=== PATIENT | female | born 1960 | race Caucasian/White ===

== ENCOUNTER 2019-11-12 19:30 | Emergency (ER) | payer MEDICARE ==
[2019-11-12] MEDS ORDERED: Ciprofloxacin/Dexamethasone 0.3-0.1% Otic Susp 7.5 ML Bottle EARRT STA (19:54)
[2019-11-12] MEDS ORDERED: Albuterol/Ipratropium 3.0-0.5 MG/3 ML Neb Soln NEB ONE (19:55)
--- NOTE | 2019-11-12 20:05 | EDM.PDOC ---
ED HPI GENERAL MEDICAL PROBLEM - General Chief Complaint: Fever Stated Complaint: FLU SYMPTOMS Time Seen by Provider: 11/12/19 19:51 Source of Information: Reports: Patient History Limitations: Reports: No Limitations - History of Present Illness INITIAL COMMENTS - FREE TEXT/NARRATIVE: HISTORY AND PHYSICAL: History of present illness: Patient is a 59-year-old female who presents to the emergency room with complaints of cough, bilateral ear pain (right greater than left) and subjective fevers. She states she has been taking [id number] cough and cold medications and has not found much relief. Her right ear has hurt worse today and states it does radiate into her jaw. Patient denies any headache, change in vision, syncope or near syncope. Denies any chest pain, back pain, shortness of breath. Denies any GI or symptoms. Patient has been eating and drinking appropriately. Review of systems: As per history of present illness and below otherwise all systems reviewed and negative. Past medical history: As per history of present illness and as reviewed below otherwise noncontributory. Surgical history: As per history of present illness and as reviewed below otherwise noncontributory. Social history: See social history for further information Family history: As per history of present illness and as reviewed below otherwise noncontributory. Physical exam: General: Well-developed and well-nourished 59-year-old female. Alert and oriented. Nontoxic-appearing and in no acute distress. HEENT: Atraumatic, normocephalic, pupils equal and reactive bilaterally, negative for conjunctival pallor or scleral icterus, mucous membranes moist, patient has erythema in the right ear canal otherwise TMs normal bilaterally, temporal tenderness with palpation, throat clear, neck supple, nontender, trachea midline. No drooling or trismus noted. No meningeal signs. No hot potato voice noted. Lungs: Clear to auscultation, breath sounds equal bilaterally, chest nontender. Heart: S1S2, regular rate and rhythm without overt murmur Abdomen: Soft, nondistended, nontender. Skin: Intact, warm, dry. No lesions or rashes noted. Extremities: Atraumatic, moves all extremities per self without difficulty or deficits, negative for cords or calf pain. Neurovascular unremarkable. Neuro: Awake, alert, oriented. Cranial nerves II through XII unremarkable. Cerebellum unremarkable. Motor and sensory unremarkable throughout. Exam nonfocal. Notes: Patient is requesting tramadol while waiting for her diagnostics to return. Chest x-ray shows mild bronchitis otherwise unremarkable. Negative influenza screening. Vital signs have improved. We discussed signs and symptoms that would prompt her to return to the emergency room. Encouraged her to follow-up with her primary care provider. Medication and supportive care measures were reviewed and discussed. Voices understanding and is agreeable to plan of care. Denies any further questions or concerns at this time. Diagnostics: CXR, influenza Therapeutics: Ciprodex, DuoNeb Prescription: Zpak Tramadol Impression: Otitis Externa, Right Bronchitis Plan: 1. Take the medications as prescribed. Ciprodex in the right ear twice daily over the next 7 days. 2. You can continue taking Tylenol and ibuprofen as needed. 3. Please follow-up with your primary care provider as we discussed. Return to the ED as needed and as discussed. Definitive disposition and diagnosis as appropriate pending reevaluation and review of above. bilateral ear Pain Score (Numeric/FACES): 8 - Related Data Allergies Allergy/AdvReac Type Severity Reaction Status Date / Time No Known Allergies Allergy Verified 11/12/19 19:43 Home Meds: Home Meds Albuterol [Ventolin HFA] 1 puff INH ASDIRECTED 11/12/19 [History] Azithromycin [Zithromax] 1 dose PO DAILY 5 Days #6 tab 11/12/19 [Rx] Furosemide [Lasix] 10 mg PO ASDIRECTED 11/12/19 [History] Potassium Chloride [Klor-Con 8] 8 meq PO ASDIRECTED 11/12/19 [History] Rivaroxaban [Xarelto] 0 mg PO DAILY 11/12/19 [History] Zolpidem Tartrate [Ambien] 5 mg PO 11/12/19 [History] methylPREDNISolone [Medrol] 1 dose PO DAILY 6 Days #1 dospk 11/12/19 [Rx] traMADol [Ultram] 50 mg PO Q4H PRN #15 tab 11/12/19 [Rx] traZODone HCl [Trazodone HCl] 50 mg PO 11/12/19 [History] Past Medical History Other Cardiovascular History: pt report begining heart disease Respiratory History: Reports: Asthma Genitourinary History: Reports: None Musculoskeletal History: Reports: Arthritis Neurological History: Reports: Migraines Other Neuro History: spinal stenosis Psychiatric History: Reports: None Endocrine/Metabolic History: Reports: None Hematologic History: Reports: Iron Deficiency, Other (See Below) Other Hematologic History: factor five Oncologic (Cancer) History: Reports: None Dermatologic History: Reports: None - Infectious Disease History Infectious Disease History: Reports: Chicken Pox, MRSA, Mumps - Past Surgical History HEENT Surgical History: Reports: Tonsillectomy GI Surgical History: Reports: Bariatric Procedure Other GI Surgeries/Procedures: hernia repair Female Surgical History: Reports: Section Musculoskeletal Surgical History: Reports: Other (See Below) Other Musculoskeletal Surgeries/Procedures:: right shoulder surgery. right knee surgery Social & Family History - Family History Family Medical History: Noncontributory - Tobacco Use Smoking Status *Q: Former Smoker Used Tobacco, but Quit: Yes Month/Year Tobacco Last Used: 2017 - Recreational Drug Use Recreational Drug Use: No ED ROS GENERAL - Review of Systems Review Of Systems: Comprehensive ROS is negative, except as noted in HPI. ED EXAM, GENERAL - Physical Exam Exam: See Below (See dictation) Course - Vital Signs Last Recorded V/S: Last Vital Signs Temp 97.6 F 11/12/19 19:49 Pulse 84 11/12/19 19:49 Resp 22 H 11/12/19 19:49 BP 149/73 H 11/12/19 19:49 Pulse Ox 92 L 11/12/19 19:49 - Orders/Labs/Meds Orders: Active Orders 24 hr Category Date Time Status RT Aerosol Therapy [RC] ASDIRECTED Care 11/12/19 19:56 Active Meds: Medications Discontinued Medications Generic Name Dose Route Start Last Admin Trade Name Wade PRN Reason Stop Dose Admin Albuterol/Ipratropium 3 ml 11/12/19 19:55 11/12/19 20:14 Duoneb 3.0-0.5 Mg/3 Ml NEB 11/12/19 19:56 3 ml ONETIME ONE Administration Ciprofloxacin/Dexamethasone 4 ml 11/12/19 19:54 11/12/19 20:28 Ciprodex Otic Susp EARRT 11/12/19 19:55 4 ml NOW STA Administration Tramadol HCl 50 mg 11/12/19 20:21 11/12/19 20:24 Ultram PO 11/12/19 20:22 Not Given ONETIME ONE Tramadol HCl 50 mg 11/12/19 20:23 11/12/19 20:28 Ultram PO 11/12/19 20:24 50 mg ONETIME ONE Administration Departure - Departure Time of Disposition: 21:10 Disposition: Home, Self-Care 01 Clinical Impression: Bronchitis Otitis externa Qualifiers: Otitis externa type: unspecified type Chronicity: acute Laterality: right Qualified Code(s): H60.501 - Unspecified acute noninfective otitis externa, right ear - Discharge Information Prescriptions: Azithromycin [Zithromax] 1 dose PO DAILY 5 Days #6 tab methylPREDNISolone [Medrol] 1 dose PO DAILY 6 Days #1 dospk traMADol [Ultram] 50 mg PO Q4H PRN #15 tab PRN Reason: Pain Instructions: Otitis Externa, [id number], Upper Respiratory Infection, Adult , [id number] Referrals: PCP,None [Primary Care Provider] - Forms: ED Department Discharge Additional Instructions: The following information is given to patients seen in the emergency department who are being discharged to home. This information is to outline your options for follow-up care. We provide all patients seen in our emergency department with a follow-up referral. The need for follow-up, as well as the timing and circumstances, are variable depending upon the specifics of your emergency department visit. If you don't have a primary care physician on staff, we will provide you with a referral. We always advise you to contact your personal physician following an emergency department visit to inform them of the circumstance of the visit and for follow-up with them and/or the need for any referrals to a consulting specialist. The emergency department will also refer you to a specialist when appropriate. This referral assures that you have the opportunity for follow-up care with a specialist. All of these measure are taken in an effort to provide you with optimal care, which includes your follow-up. Under all circumstances we always encourage you to contact your private physician who remains a resource for coordinating your care. When calling for follow-up care, please make the office aware that this follow-up is from your recent emergency room visit. If for any reason you are refused follow-up, please contact the [facility] Emergency Department at and asked to speak to the emergency department charge nurse. [facility] Primary Care [address] [place] [address] [place] [id number] [facility] [address] [place] [address] 1. Take the medications as prescribed. Ciprodex in the right ear twice daily over the next 7 days. 2. You can continue taking Tylenol and ibuprofen as needed. 3. Please follow-up with your primary care provider as we discussed. Return to the ED as needed and as discussed. Sepsis Event Note - Evaluation Sepsis Screening Result: No Definite Risk - Focused Exam Vital Signs: Vital Signs Temp Pulse Resp BP Pulse Ox 11/12/19 19:49 97.6 F 84 22 H 149/73 H 92 L Date Exam was Performed: 11/12/19 Time Exam was Performed: 21:13 - My Orders Last 24 Hours: My Active Orders 11/12/19 19:56 RT Aerosol Therapy [RC] ASDIRECTED - Assessment/Plan Last 24 Hours: My Active Orders 11/12/19 19:56 RT Aerosol Therapy [RC] ASDIRECTED
[2019-11-12] MEDS ORDERED: traMADol 50 MG Tab PO ONE ×2 (20:21→20:23)
--- NOTE | 2019-11-12 21:07 | CR ---
Chest: 2 views of the chest were obtained. Comparison: No prior chest x-ray is available. Heart size and mediastinum are normal. Central lung markings are questionably increased since difficult to exclude mild bronchitis. Lungs otherwise are clear. Mild scoliosis is noted within the spine. No acute osseous finding is seen. Impression: 1. Possible mild bronchitis. 2. Nothing acute is otherwise seen on 2 view chest x-ray. Diagnostic code #3 Study was dictated in [place] Standard Time
== END 2019-11-12 21:25 | disposition home or self-care (01) ==
LOC: MW.ED 19:30
DX: J40 Bronchitis, not specified as acute or chronic (principal); H60.501 Unspecified acute noninfective otitis externa, right ear; Z87.891 Personal history of nicotine dependence; Z79.899 Other long term (current) drug therapy
CPT/HCPCS: 71046; 87804; 94640; 99284; A9270; 99283; J7620-GY

== ENCOUNTER 2020-08-04 13:50 | Observation (INO) | payer MEDICARE ==
--- NOTE | 2020-08-04 13:57 | EDM.PDOC ---
ED HPI GENERAL MEDICAL PROBLEM - General Chief Complaint: Chest Pain Stated Complaint: CHEST PAIN Time Seen by Provider: 08/04/20 13:56 Source of Information: Reports: Patient History Limitations: Reports: No Limitations - History of Present Illness INITIAL COMMENTS - FREE TEXT/NARRATIVE: 60-year-old female past medical history COPD no home O2, factor V Leidin on eliquis use presents for chest pain. Patient states that she was using the restroom, when she got up from urinating she felt a sharp/stabbing pain in her center chest radiating up her neck. She went to sit down but pain did not get better. She took 6 x 81 mg baby aspirin and rested. The pain lasted for about 10 minutes and was rated an 8 out of 10 in intensity. She did have associated shortness of breath. She currently denies any residual chest pain or shortness of breath. She denies nausea vomiting. Denies recent illnesses or fevers. - Related Data Allergies Allergy/AdvReac Type Severity Reaction Status Date / Time No Known Allergies Allergy Verified 08/04/20 13:56 Home Meds: Home Meds Albuterol [Ventolin HFA] 1 puff INH ASDIRECTED 11/12/19 [History] Furosemide [Lasix] 40 mg PO DAILY 11/12/19 [History] Potassium Chloride [Klor-Con 8] 40 meq PO ASDIRECTED 11/12/19 [History] Rivaroxaban [Xarelto] 20 mg PO DAILY 11/12/19 [History] Zolpidem Tartrate [Ambien] 5 mg PO DAILY 11/12/19 [History] traZODone HCl [Trazodone HCl] 50 mg PO DAILY 11/12/19 [History] Cyclobenzaprine [Flexeril] 10 mg PO TID 08/04/20 [History] Past Medical History Other Cardiovascular History: pt report begining heart disease Respiratory History: Reports: Asthma Genitourinary History: Reports: None Musculoskeletal History: Reports: Arthritis Neurological History: Reports: Migraines Other Neuro History: spinal stenosis Psychiatric History: Reports: None Endocrine/Metabolic History: Reports: None Hematologic History: Reports: Iron Deficiency, Other (See Below) Other Hematologic History: factor five Oncologic (Cancer) History: Reports: None Dermatologic History: Reports: None - Infectious Disease History Infectious Disease History: Reports: Chicken Pox, MRSA, Mumps - Past Surgical History HEENT Surgical History: Reports: Tonsillectomy GI Surgical History: Reports: Bariatric Procedure Other GI Surgeries/Procedures: hernia repair Female Surgical History: Reports: Section Musculoskeletal Surgical History: Reports: Other (See Below) Other Musculoskeletal Surgeries/Procedures:: right shoulder surgery. right knee surgery Social & Family History - Family History Family Medical History: No Pertinent Family History ED ROS GENERAL - Review of Systems Review Of Systems: Comprehensive ROS is negative, except as noted in HPI. ED EXAM, GENERAL - Physical Exam Exam: See Below Exam Limited By: No Limitations General Appearance: Alert, WD/WN, No Apparent Distress Throat/Mouth: Normal Voice, No Airway Compromise Head: Atraumatic, Normocephalic Neck: Normal Inspection Respiratory/Chest: No Respiratory Distress, Lungs Clear, Normal Breath Sounds, No Accessory Muscle Use Cardiovascular: Normal Peripheral Pulses, Regular Rate, Rhythm, Other (mild b/l pitting edema) Extremities: Normal Inspection Neurological: Alert Psychiatric: Normal Affect, Normal Mood Skin Exam: Warm, Dry, Intact, Normal Color #1 Interpretation EKG Date: 08/04/20 Time: 14:00 Rhythm: NSR Rate (Beats/Min): 64 [place]: Normal P-Wave: Present QRS: Normal ST-T: Normal QT: Normal DE/PQ Interval: 203 EKG Interpretation Comments: inverted T-wave V1, V2, V3, V4, III; concerning for acute ischemia Course - Vital Signs Last Recorded V/S: Last Vital Signs Temp 96.8 F L 08/04/20 13:54 Pulse 77 08/04/20 13:54 Resp 18 08/04/20 13:54 BP 142/63 H 08/04/20 13:54 Pulse Ox 95 08/04/20 13:54 - Orders/Labs/Meds Orders: Active Orders 24 hr Category Date Time Status Cardiac Monitoring [RC] . DIRECTED Care 08/04/20 13:58 Active EKG Documentation Completion [RC] STAT Care 08/04/20 13:58 Active Pulse Oximetry [RC] ASDIRECTED Care 08/04/20 13:58 Active CORONAVIRUS COVID-19 PCR PHL Stat Lab 08/04/20 17:53 Ordered Sodium Chloride 0.9% [Saline Flush] Med 08/04/20 13:58 Active 10 ml FLUSH ASDIRECTED PRN Sodium Chloride 0.9% [Saline Flush] Med 08/04/20 13:58 Active 2.5 ml FLUSH ASDIRECTED PRN Saline Lock Insert [OM.PC] Stat Oth 08/04/20 13:58 Ordered Medication Orders Sodium Chloride (Saline Flush) 10 ml FLUSH ASDIRECTED PRN PRN Reason: Keep Vein Open Last Admin: 08/04/20 16:47 Dose: 10 ml Documented by: RAIZA Sodium Chloride (Saline Flush) 2.5 ml FLUSH ASDIRECTED PRN PRN Reason: Keep Vein Open Last Admin: 08/04/20 16:47 Dose: 2.5 ml Documented by: RAIZA Labs: Laboratory Tests 08/04/20 08/04/20 08/04/20 Range/Units 13:58 13:58 13:58 WBC 6.39 (4.0-11.0) K/uL RBC 5.01 (4.30-5.90) M/uL Hgb 14.9 (12.0-16.0) g/dL Hct 44.1 (36.0-46.0) % MCV 88.0 (80.0-98.0) fL MCH 29.7 (27.0-32.0) pg MCHC 33.8 (31.0-37.0) g/dL RDW Std Deviation 44.5 (28.0-62.0) fl RDW Coeff of Trevor 14 (11.0-15.0) % Plt Count 169 (150-400) K/uL MPV 12.20 H (7.40-12.00) fL Neut % (Auto) 52.3 (48.0-80.0) % Lymph % (Auto) 36.6 (16.0-40.0) % [place] % (Auto) 8.9 (0.0-15.0) % Eos % (Auto) 1.4 (0.0-7.0) % Baso % (Auto) 0.8 (0.0-1.5) % Neut # (Auto) 3.3 (1.4-5.7) K/uL Lymph # (Auto) 2.3 (0.6-2.4) K/uL [place] # (Auto) 0.6 (0.0-0.8) K/uL Eos # (Auto) 0.1 (0.0-0.7) K/uL Baso # (Auto) 0.1 (0.0-0.1) K/uL Nucleated RBC % 0.0 /100WBC Nucleated RBCs # 0 K/uL INR APTT (18.6-31.3) SEC Lactate 0.6 (0.20-2.00) mmol/L Sodium 139 (136-145) mmol/L Potassium 4.1 (3.5-5.1) mmol/L Chloride 105 (98-107) mmol/L Carbon Dioxide 23.9 (21.0-32.0) mmol/L BUN 16 (7.0-18.0) mg/dL Creatinine 1.3 H (0.6-1.0) mg/dL Est Cr Clr Drug Dosing 42.44 mL/min Estimated GFR (MDRD) 42.1 ml/min Glucose 97 (74-106) mg/dL Calcium 8.9 (8.5-10.1) mg/dL Magnesium 1.9 (1.8-2.4) mg/dL Total Bilirubin 0.5 (0.2-1.0) mg/dL AST 27 (15-37) IU/L ALT 38 (14-63) IU/L Alkaline Phosphatase 100 (46-116) U/L Troponin I < 0.050 (0.000-0.056) ng/mL Total Protein 6.8 (6.4-8.2) g/dL Albumin 3.6 (3.4-5.0) g/dL Globulin 3.2 (2.6-4.0) g/dL Albumin/Globulin Ratio 1.1 (0.9-1.6) Lipase 30 L (73-393) U/L 08/04/20 08/04/20 Range/Units 13:58 17:01 WBC (4.0-11.0) K/uL RBC (4.30-5.90) M/uL Hgb (12.0-16.0) g/dL Hct (36.0-46.0) % MCV (80.0-98.0) fL MCH (27.0-32.0) pg MCHC (31.0-37.0) g/dL RDW Std Deviation (28.0-62.0) fl RDW Coeff of Trevor (11.0-15.0) % Plt Count (150-400) K/uL MPV (7.40-12.00) fL Neut % (Auto) (48.0-80.0) % Lymph % (Auto) (16.0-40.0) % [place] % (Auto) (0.0-15.0) % Eos % (Auto) (0.0-7.0) % Baso % (Auto) (0.0-1.5) % Neut # (Auto) (1.4-5.7) K/uL Lymph # (Auto) (0.6-2.4) K/uL [place] # (Auto) (0.0-0.8) K/uL Eos # (Auto) (0.0-0.7) K/uL Baso # (Auto) (0.0-0.1) K/uL Nucleated RBC % /100WBC Nucleated RBCs # K/uL INR 1.03 APTT 29.5 (18.6-31.3) SEC Lactate (0.20-2.00) mmol/L Sodium (136-145) mmol/L Potassium (3.5-5.1) mmol/L Chloride (98-107) mmol/L Carbon Dioxide (21.0-32.0) mmol/L BUN (7.0-18.0) mg/dL Creatinine (0.6-1.0) mg/dL Est Cr Clr Drug Dosing mL/min Estimated GFR (MDRD) ml/min Glucose (74-106) mg/dL Calcium (8.5-10.1) mg/dL Magnesium (1.8-2.4) mg/dL Total Bilirubin (0.2-1.0) mg/dL AST (15-37) IU/L ALT (14-63) IU/L Alkaline Phosphatase (46-116) U/L Troponin I < 0.050 (0.000-0.056) ng/mL Total Protein (6.4-8.2) g/dL Albumin (3.4-5.0) g/dL Globulin (2.6-4.0) g/dL Albumin/Globulin Ratio (0.9-1.6) Lipase (73-393) U/L Meds: Medications Generic Name Dose Route Start Last Admin Trade Name Freq PRN Reason Stop Dose Admin Sodium Chloride 10 ml 08/04/20 13:58 08/04/20 16:47 Saline Flush FLUSH 10 ml ASDIRECTED PRN Administration Keep Vein Open Sodium Chloride 2.5 ml 08/04/20 13:58 08/04/20 16:47 Saline Flush FLUSH 2.5 ml ASDIRECTED PRN Administration Keep Vein Open - Re-Assessments/Exams Free Text/Narrative Re-Assessment/Exam: 08/04/20 17:55 2 times Trope negative, spoke with hospitalist Dr. Griffin who agrees to admit patient for chest pain ops work-up. Departure - Departure Time of Disposition: 17:55 Disposition: Admitted As Inpatient 68 Condition: Good Clinical Impression: Chest pain Qualifiers: Chest pain type: unspecified Qualified Code(s): R07.9 - Chest pain, unspecified - Discharge Information Forms: ED Department Discharge Sepsis Event Note (ED) - Evaluation Sepsis Screening Result: No Definite Risk - Focused Exam Vital Signs: Vital Signs Temp Pulse Resp BP Pulse Ox 08/04/20 13:54 96.8 F L 77 18 142/63 H 95 - My Orders Last 24 Hours: My Active Orders 08/04/20 13:58 Cardiac Monitoring [RC] . DIRECTED EKG Documentation Completion [RC] STAT Pulse Oximetry [RC] ASDIRECTED Sodium Chloride 0.9% [Saline Flush] 10 ml FLUSH ASDIRECTED PRN Sodium Chloride 0.9% [Saline Flush] 2.5 ml FLUSH ASDIRECTED PRN Saline Lock Insert [OM.PC] Stat 08/04/20 17:53 CORONAVIRUS COVID-19 PCR PHL Stat - Assessment/Plan Last 24 Hours: My Active Orders 08/04/20 13:58 Cardiac Monitoring [RC] . DIRECTED EKG Documentation Completion [RC] STAT Pulse Oximetry [RC] ASDIRECTED Sodium Chloride 0.9% [Saline Flush] 10 ml FLUSH ASDIRECTED PRN Sodium Chloride 0.9% [Saline Flush] 2.5 ml FLUSH ASDIRECTED PRN Saline Lock Insert [OM.PC] Stat 08/04/20 17:53 CORONAVIRUS COVID-19 PCR PHL Stat
[2020-08-04] MEDS ORDERED: Sodium Chloride 0.9% 2.5 ML Syringe FLUSH PRN (13:58)
[2020-08-04] MEDS ORDERED: Sodium Chloride 0.9% 10 ML Syringe FLUSH PRN (13:58)
[2020-08-04 14:29] LABS: BLOOD UREA NITROGEN,BUN 16 mg/dL (7.0-18.0); CARBON DIOXIDE,CO2 23.9 mmol/L (21.0-32.0); CHLORIDE,CL 105 mmol/L (98-107); GLUCOSE RANDOM 97 mg/dL (74-106); LIPASE 30 U/L (73-393); POTASSIUM,K 4.1 mmol/L (3.5-5.1); SODIUM,NA 139 mmol/L (136-145)
--- NOTE | 2020-08-04 14:34 | CR ---
INDICATION: Chest pain COMPARISON: November 12, 2019 TECHNIQUE: Single-view portable chest radiograph FINDINGS: TUBES AND LINES: None. HEART AND MEDIASTINUM: The heart size is normal. The mediastinal contour appears normal for patient age. LUNGS AND PLEURAL SPACES: The lungs appear normal.The pleural spaces are unremarkable. OSSEOUS STRUCTURES: Age-appropriate appearance. No acute focal finding. IMPRESSION: No evidence of active pulmonary disease. Dictated by Mundo Pederson MD @ Aug 04 2020 2:31PM Signed by Dr. Mundo Pedesron @ Aug 04 2020 2:33PM
[2020-08-04] MEDS ORDERED: Albuterol/Ipratropium 3.0-0.5 MG/3 ML Neb Soln NEB PRN (18:00)
[2020-08-04] MEDS ORDERED: Acetaminophen 325 MG Tab PO PRN (18:32)
[2020-08-04] MEDS ORDERED: Lactated Ringers 500 ML IV ONE (18:43)
--- NOTE | 2020-08-04 18:48 | PCM.HP.2 ---
<Elliot Johnson M - Last Filed: 08/04/20 18:56> H&P History of Present Illness - General Date of Service: 08/04/20 Admit Problem/Dx: Admission Diagnosis/Problem Admission Diagnosis/Problem Chest pain Source of Information: Patient History Limitations: Reports: No Limitations - History of Present Illness Initial Comments - Free Text/Narative: 60-year-old female presents complaining of chest pain. She has a PMH of COPD, Factor V leiden mutation, asthma, migraines and back pain. Patient reports having chest pain, located in her central chest which was described as "sharp" and "pressure" in nature. The pain radiated to her neck. The pain lasted a pproximately 10 min before resolving. The pain did not worsen with activity or rest. She has never had chest pain like this before. Patient did have associated shortness of breath and cold sweats. Patient took 6 baby aspirins before coming to the ER. Patient did not have any more chest pain upon arrival to the ER. She denies having any fevers, chills, sore throat, cough, nausea, vomiting, abdomina l pain, blood in stool, blood in urine, numbness or tingling in extremities. In the ER, CBC unremarkable, creatinine 1.3, troponin was negative x 2. CXR was unremarkable. EKG showed inverted T-waves in leads V1, V2, V3, V4 and lead III. COVID-19 test pending. Patient admitted for further evaluation and treatment. - Related Data Allergies/Adverse Reactions: Allergies Allergy/AdvReac Type Severity Reaction Status Date / Time adhesive tape Allergy Blisters Verified 08/04/20 20:02 Home Medications: Home Meds Albuterol [Ventolin HFA] 1 puff INH ASDIRECTED PRN 11/12/19 [History] Zolpidem Tartrate [Ambien] 5 mg PO BEDTIME 11/12/19 [History] traZODone HCl [Trazodone HCl] 50 mg PO BEDTIME PRN 11/12/19 [History] Cyclobenzaprine [Flexeril] 10 mg PO TID PRN 08/04/20 [History] Furosemide 20 mg PO DAILY PRN 08/04/20 [History] Pedi Mv No.79/Ferrous Fumarate [Flintstones with Iron Tab Chew] 18 mg PO DAILY 08/04/20 [History] Potassium Chloride 20 meq PO DAILY PRN 08/04/20 [History] Rivaroxaban [Xarelto] 20 mg PO DAILY 08/04/20 [History] Past Medical History Other Cardiovascular History: pt report begining heart disease Respiratory History: Reports: Asthma Genitourinary History: Reports: None Other OB/BYN History: c section Musculoskeletal History: Reports: Arthritis Neurological History: Reports: Migraines Other Neuro History: spinal stenosis Psychiatric History: Reports: None Endocrine/Metabolic History: Reports: None Hematologic History: Reports: Iron Deficiency, Other (See Below) Other Hematologic History: factor five Oncologic (Cancer) History: Reports: None Dermatologic History: Reports: None - Infectious Disease History Infectious Disease History: Reports: Chicken Pox, MRSA, Mumps - Past Surgical History HEENT Surgical History: Reports: Tonsillectomy GI Surgical History: Reports: Bariatric Procedure Other GI Surgeries/Procedures: hernia repair Female Surgical History: Reports: Section Musculoskeletal Surgical History: Reports: Other (See Below) Other Musculoskeletal Surgeries/Procedures:: right shoulder surgery. right knee surgery Social & Family History - Family History Family Medical History: No Pertinent Family History - Caffeine Use Caffeine Use: Reports: Tea - Recreational Drug Use Recreational Drug Use: No H&P Review of Systems - Review of Systems: Review Of Systems: Comprehensive ROS is negative, except as noted in HPI. Exam - Exam Exam: See Below - Vital Signs Vital Signs: Last Vital Signs Temp 36.0 C L 08/04/20 13:54 Pulse 77 08/04/20 13:54 Resp 18 08/04/20 13:54 BP 142/63 H 08/04/20 13:54 Pulse Ox 95 08/04/20 13:54 Weight: 108.862 kg - Exam General: Alert, Oriented, Cooperative, Other (NAD) HEENT: Conjunctiva Clear, EOMI, Hearing Intact, Pupils Equal, Pupils Reactive Neck: Supple, Trachea Midline Lungs: Clear to Auscultation, Normal Respiratory Effort Cardiovascular: Regular Rate, Regular Rhythm GI/Abdominal Exam: Normal Bowel Sounds, Soft, Non-Tender, No Distention Extremities: Normal Inspection, No Pedal Edema Peripheral Pulses: 2+: Radial (L), Radial (R) Skin: Warm, Dry, Intact Neurological: Cranial Nerves Intact, Strength Equal Bilateral, Normal Speech, Normal Tone Neuro Extensive - Mental Status: Alert, Oriented x3, Normal Mood/Affect Psychiatric: Alert, Normal Affect, Normal Mood - Patient Data Lab Results Last 24 hrs: Laboratory Results - last 24 hr 08/04/20 08/04/20 08/04/20 Range/Units 13:58 13:58 13:58 WBC 6.39 (4.0-11.0) K/uL RBC 5.01 (4.30-5.90) M/uL Hgb 14.9 (12.0-16.0) g/dL Hct 44.1 (36.0-46.0) % MCV 88.0 (80.0-98.0) fL MCH 29.7 (27.0-32.0) pg MCHC 33.8 (31.0-37.0) g/dL RDW Std Deviation 44.5 (28.0-62.0) fl RDW Coeff of Trevor 14 (11.0-15.0) % Plt Count 169 (150-400) K/uL MPV 12.20 H (7.40-12.00) fL Neut % (Auto) 52.3 (48.0-80.0) % Lymph % (Auto) 36.6 (16.0-40.0) % Harrison % (Auto) 8.9 (0.0-15.0) % Eos % (Auto) 1.4 (0.0-7.0) % Baso % (Auto) 0.8 (0.0-1.5) % Neut # (Auto) 3.3 (1.4-5.7) K/uL Lymph # (Auto) 2.3 (0.6-2.4) K/uL Harrison # (Auto) 0.6 (0.0-0.8) K/uL Eos # (Auto) 0.1 (0.0-0.7) K/uL Baso # (Auto) 0.1 (0.0-0.1) K/uL Nucleated RBC % 0.0 /100WBC Nucleated RBCs # 0 K/uL INR APTT (18.6-31.3) SEC Lactate 0.6 (0.20-2.00) mmol/L Sodium 139 (136-145) mmol/L Potassium 4.1 (3.5-5.1) mmol/L Chloride 105 (98-107) mmol/L Carbon Dioxide 23.9 (21.0-32.0) mmol/L BUN 16 (7.0-18.0) mg/dL Creatinine 1.3 H (0.6-1.0) mg/dL Est Cr Clr Drug Dosing 42.44 mL/min Estimated GFR (MDRD) 42.1 ml/min Glucose 97 (74-106) mg/dL Calcium 8.9 (8.5-10.1) mg/dL Magnesium 1.9 (1.8-2.4) mg/dL Total Bilirubin 0.5 (0.2-1.0) mg/dL AST 27 (15-37) IU/L ALT 38 (14-63) IU/L Alkaline Phosphatase 100 (46-116) U/L Troponin I < 0.050 (0.000-0.056) ng/mL Total Protein 6.8 (6.4-8.2) g/dL Albumin 3.6 (3.4-5.0) g/dL Globulin 3.2 (2.6-4.0) g/dL Albumin/Globulin Ratio 1.1 (0.9-1.6) Lipase 30 L (73-393) U/L 08/04/20 08/04/20 Range/Units 13:58 17:01 WBC (4.0-11.0) K/uL RBC (4.30-5.90) M/uL Hgb (12.0-16.0) g/dL Hct (36.0-46.0) % MCV (80.0-98.0) fL MCH (27.0-32.0) pg MCHC (31.0-37.0) g/dL RDW Std Deviation (28.0-62.0) fl RDW Coeff of Trevor (11.0-15.0) % Plt Count (150-400) K/uL MPV (7.40-12.00) fL Neut % (Auto) (48.0-80.0) % Lymph % (Auto) (16.0-40.0) % Harrison % (Auto) (0.0-15.0) % Eos % (Auto) (0.0-7.0) % Baso % (Auto) (0.0-1.5) % Neut # (Auto) (1.4-5.7) K/uL Lymph # (Auto) (0.6-2.4) K/uL Harrison # (Auto) (0.0-0.8) K/uL Eos # (Auto) (0.0-0.7) K/uL Baso # (Auto) (0.0-0.1) K/uL Nucleated RBC % /100WBC Nucleated RBCs # K/uL INR 1.03 APTT 29.5 (18.6-31.3) SEC Lactate (0.20-2.00) mmol/L Sodium (136-145) mmol/L Potassium (3.5-5.1) mmol/L Chloride (98-107) mmol/L Carbon Dioxide (21.0-32.0) mmol/L BUN (7.0-18.0) mg/dL Creatinine (0.6-1.0) mg/dL Est Cr Clr Drug Dosing mL/min Estimated GFR (MDRD) ml/min Glucose (74-106) mg/dL Calcium (8.5-10.1) mg/dL Magnesium (1.8-2.4) mg/dL Total Bilirubin (0.2-1.0) mg/dL AST (15-37) IU/L ALT (14-63) IU/L Alkaline Phosphatase (46-116) U/L Troponin I < 0.050 (0.000-0.056) ng/mL Total Protein (6.4-8.2) g/dL Albumin (3.4-5.0) g/dL Globulin (2.6-4.0) g/dL Albumin/Globulin Ratio (0.9-1.6) Lipase (73-393) U/L Result Diagrams: 08/04/20 13:58 08/04/20 13:58 Sepsis Event Note - Evaluation Sepsis Screening Result: No Definite Risk - Focused Exam Vital Signs: Vital Signs Temp Pulse Resp BP Pulse Ox 08/04/20 13:54 36.0 C L 77 18 142/63 H 95 - Problem List (1) Chest pain SNOMED Code(s): 65910250 ICD Code: R07.9 - CHEST PAIN, UNSPECIFIED Status: Acute Qualifiers: Chest pain type: unspecified Qualified Code(s): R07.9 - Chest pain, unspecified (2) Factor V Leiden SNOMED Code(s): 544210421 ICD Code: D68.51 - ACTIVATED PROTEIN C RESISTANCE Status: Acute (3) COPD (chronic obstructive pulmonary disease) SNOMED Code(s): 84879696 ICD Code: J44.9 - CHRONIC OBSTRUCTIVE PULMONARY DISEASE, UNSPECIFIED Status: Acute (4) Anxiety SNOMED Code(s): 24786898 ICD Code: F41.9 - ANXIETY DISORDER, UNSPECIFIED Status: Acute (5) TITO (acute kidney injury) SNOMED Code(s): 16846265, 58965199 ICD Code: N17.9 - ACUTE KIDNEY FAILURE, UNSPECIFIED Status: Acute Problem List Initiated/Reviewed/Updated: Yes Orders Last 24hrs: Active Orders 24 hr Category Date Time Status Patient Status [ADT] Routine ADT 08/04/20 17:55 Active Cardiac Monitoring [RC] . DIRECTED Care 08/04/20 13:58 Active EKG Documentation Completion [RC] STAT Care 08/04/20 13:58 Active Oxygen Therapy [RC] PRN Care 08/04/20 18:32 Ordered Pulse Oximetry [RC] ASDIRECTED Care 08/04/20 13:58 Active RT Aerosol Therapy [RC] ASDIRECTED Care 08/04/20 18:38 Ordered Telemetry Monitoring [Cardiac Monitoring] [RC] . Care 08/04/20 18:38 Ordered DIRECTED Up ad Robina [RC] ASDIRECTED Care 08/04/20 18:32 Ordered VTE/DVT Education [RC] PER UNIT ROUTINE Care 08/04/20 18:32 Ordered Vital Signs [RC] Q4H Care 08/04/20 18:32 Ordered Heart Healthy Diet [DIET] Diet 08/04/20 Dinner Ordered Echo Comp wo Cont [US] Urgent Exams 08/04/20 18:39 Ordered CBC WITH AUTO DIFF [HEME] AM Lab 08/05/20 05:11 Ordered COMPREHENSIVE METABOLIC PN,CMP [CHEM] AM Lab 08/05/20 05:11 Ordered CORONAVIRUS COVID-19 BARB [MOLEC] Stat Lab 08/04/20 18:01 Received GLYCOSYLATED HEMOGLOBIN,HGBA1C [CHEM] AM Lab 08/05/20 05:11 Ordered LIPID PANEL [CHEM] AM Lab 08/05/20 05:11 Ordered PHOSPHORUS [CHEM] Routine Lab 08/04/20 18:32 Ordered TROPONIN I [CHEM] Q3H Lab 08/04/20 20:00 Ordered TROPONIN I [CHEM] Q3H Lab 08/04/20 23:00 Ordered TSH [CHEM] AM Lab 08/05/20 05:11 Ordered Acetaminophen [TylenoL] Med 08/04/20 18:32 Ordered 650 mg PO Q4H PRN Albuterol/Ipratropium [DuoNeb 3.0-0.5 MG/3 ML] Med 08/04/20 18:00 Ordered 3 ml NEB Q6HRRT PRN Cyclobenzaprine [Flexeril] Med 08/04/20 22:00 Ordered 10 mg PO TID Lactated Ringers [Ringers, Lactated] 500 ml Med 08/04/20 18:43 Ordered IV .BOLUS Rivaroxaban [Xarelto] Med 08/05/20 09:00 Ordered 20 mg PO DAILY Sodium Chloride 0.9% [Saline Flush] Med 08/04/20 13:58 Active 10 ml FLUSH ASDIRECTED PRN Sodium Chloride 0.9% [Saline Flush] Med 08/04/20 13:58 Active 2.5 ml FLUSH ASDIRECTED PRN traZODone Med 08/04/20 21:00 Ordered 50 mg PO DAILY PRN Saline Lock Insert [OM.PC] Stat Oth 08/04/20 13:58 Ordered Resuscitation Status Routine Resus Stat 08/04/20 18:32 Ordered Medication Orders Acetaminophen (Tylenol) 650 mg PO Q4H PRN PRN Reason: Pain (Mild 1-3)/fever Albuterol/Ipratropium (Duoneb 3.0-0.5 Mg/3 Ml) 3 ml NEB Q6HRRT PRN PRN Reason: Dyspnea Cyclobenzaprine HCl (Flexeril) 10 mg PO TID TYRONE Lactated Ringer's (Ringers, Lactated) 500 mls @ 999 mls/hr IV .BOLUS ONE Stop: 08/04/20 19:13 Rivaroxaban (Xarelto) 20 mg PO DAILY TYRONE Sodium Chloride (Saline Flush) 10 ml FLUSH ASDIRECTED PRN PRN Reason: Keep Vein Open Last Admin: 08/04/20 16:47 Dose: 10 ml Documented by: RAIZA Sodium Chloride (Saline Flush) 2.5 ml FLUSH ASDIRECTED PRN PRN Reason: Keep Vein Open Last Admin: 08/04/20 16:47 Dose: 2.5 ml Documented by: RAIZA Trazodone HCl (Trazodone) 50 mg PO DAILY PRN PRN Reason: Insomnia Assessment/Plan Comment:: Assessment and Plan: 1. Chest pain, ACS r/o: - Admit to med/surg. Patient on telemetry. EKG showed T-wave inversions in leads V1, V2, V3, V4 and lead III. First two troponin were negative. Will repeat one more troponin. Will check TSH, lipid panel and HgbA1c. Will order ECHO. Patient asymptomatic at this time. 2. TITO: - Will give IV LR 500 cc bolus. Will recheck with AM labs. 3. Factor V Leiden mutation: - Patient on Xarelto. 4. DVT prophylaxis: - Xarelto secondary to #3. 5. Past medical history of COPD, asthma, migraines, spinal stenosis and back pain: - Will continue home medications. <Margarita Crockett - Last Filed: 08/09/20 12:37> H&P History of Present Illness - General Admit Problem/Dx: Admission Diagnosis/Problem Admission Diagnosis/Problem Chest pain Exam - Vital Signs Vital Signs: Last Vital Signs Temp 36.6 C 08/05/20 12:00 Pulse 80 08/05/20 12:00 Resp 18 08/05/20 12:00 BP 128/76 08/05/20 12:00 Pulse Ox 93 L 08/05/20 12:00 - Patient Data Result Diagrams: 08/05/20 05:18 08/05/20 05:18 Assessment/Plan Comment:: I performed a history and physical exam of the patient and discussed management with resident. I have reviewed the residents note and agree with documented findings and plan unless otherwise specified in my note.
[2020-08-04] MEDS ORDERED: traZODone 50 MG Tab PO PRN (21:00)
[2020-08-04] MEDS ORDERED: FLU Vacc QS2020-21 36MOS UP/PF 60 MCG/0.5 ML Syringe IM ONE (21:30)
[2020-08-04] MEDS ORDERED: Cyclobenzaprine 10 MG Tab PO SCH (22:00)
[2020-08-04] MEDS ORDERED: Cyclobenzaprine 10 MG Tab PO PRN (22:36)
[2020-08-05 06:13] LABS: HEMOGLOBIN A1C 5.9 %
[2020-08-05 06:40] LABS: CARBON DIOXIDE,CO2 25.5 mmol/L (21.0-32.0); POTASSIUM,K 3.8 mmol/L (3.5-5.1)
[2020-08-05] MEDS ORDERED: Rivaroxaban 10 MG Tab PO SCH (09:00)
--- NOTE | 2020-08-05 12:27 | PCM.DCSUM1 ---
<Elliot Johnson - Last Filed: 08/05/20 12:57> Discharge Summary - Hospital Course Free Text/Narrative:: 60-year-old female admitted for chest pain, ACS rule out. She has a PMH of COPD, Factor V Leiden mutation, migraines and chronic back pain. EKG on admission showed inverted T-waves in leads V1, V2, V3, V4 and lead III. CXR was negative. COVID-19 test negative. Troponins were trended and negative x 3. Patient remained hemodynamically stable and had no recurrence of chest pain overnight. Lipid panel and TSH were unremarkable. HgbA1c was 5.9. ECHO ordered and is pending at time of discharge. Patient was given script for EKG stress test with results to be forwarded to PCP AJITH Hicks. She was discharged in stable condition and advised to follow-up with PCP. - Discharge Data Discharge Date: 08/05/20 Discharge Disposition: Home, Self-Care 01 Condition: Good - Referral to Home Health Primary Care Physician: Shawanda Florez NP - Discharge Diagnosis/Problem(s) (1) Chest pain SNOMED Code(s): 47283178 ICD Code: R07.9 - CHEST PAIN, UNSPECIFIED Status: Acute Qualifiers: Chest pain type: unspecified Qualified Code(s): R07.9 - Chest pain, unspecified (2) Factor V Leiden SNOMED Code(s): 997128033 ICD Code: D68.51 - ACTIVATED PROTEIN C RESISTANCE Status: Acute (3) COPD (chronic obstructive pulmonary disease) SNOMED Code(s): 08592664 ICD Code: J44.9 - CHRONIC OBSTRUCTIVE PULMONARY DISEASE, UNSPECIFIED Status: Acute (4) Anxiety SNOMED Code(s): 06589834 ICD Code: F41.9 - ANXIETY DISORDER, UNSPECIFIED Status: Acute (5) TITO (acute kidney injury) SNOMED Code(s): 58487046, 33375641 ICD Code: N17.9 - ACUTE KIDNEY FAILURE, UNSPECIFIED Status: Acute - Patient Instructions Diet: Usual Diet as Tolerated Activity: As Tolerated Notify Provider of: Fever, Increased Pain, Swelling and Redness, Drainage, Nausea and/or Vomiting - Discharge Plan *PRESCRIPTION DRUG MONITORING PROGRAM REVIEWED*: Not Applicable *COPY OF PRESCRIPTION DRUG MONITORING REPORT IN PATIENT JAN: Not Applicable Home Medications: Home Meds Albuterol [Ventolin HFA] 1 puff INH ASDIRECTED PRN 11/12/19 [History] Zolpidem Tartrate [Ambien] 5 mg PO BEDTIME 11/12/19 [History] traZODone HCl [Trazodone HCl] 50 mg PO BEDTIME PRN 11/12/19 [History] Cyclobenzaprine [Flexeril] 10 mg PO TID PRN 08/04/20 [History] Furosemide 20 mg PO DAILY PRN 08/04/20 [History] Pedi Mv No.79/Ferrous Fumarate [Flintstones with Iron Tab Chew] 18 mg PO DAILY 08/04/20 [History] Potassium Chloride 20 meq PO DAILY PRN 08/04/20 [History] Rivaroxaban [Xarelto] 20 mg PO DAILY 08/04/20 [History] Oxygen Therapy Mode: Room Air Patient Handouts: Nonspecific Chest Pain, Adult Referrals: Shawanda Florez NP [Primary Care Provider] - 08/12/20 5:00 pm - Discharge Summary/Plan Comment DC Time >30 min.: No - Patient Data Vitals - Most Recent: Last Vital Signs Temp 36.1 C 08/05/20 09:00 Pulse 64 08/05/20 09:00 Resp 18 08/05/20 09:00 BP 125/60 08/05/20 09:00 Pulse Ox 91 L 08/05/20 09:00 Weight - Most Recent: 113.58 kg I&O - Last 24 hours: Intake & Output 08/04/20 08/05/20 08/05/20 22:59 06:59 14:59 Intake Total 1300 Output Total 450 Balance 850 Lab Results - Last 24 hrs: Laboratory Results - last 24 hr 08/04/20 08/04/20 08/04/20 Range/Units 13:58 13:58 13:58 WBC 6.39 (4.0-11.0) K/uL RBC 5.01 (4.30-5.90) M/uL Hgb 14.9 (12.0-16.0) g/dL Hct 44.1 (36.0-46.0) % MCV 88.0 (80.0-98.0) fL MCH 29.7 (27.0-32.0) pg MCHC 33.8 (31.0-37.0) g/dL RDW Std Deviation 44.5 (28.0-62.0) fl RDW Coeff of Trevor 14 (11.0-15.0) % Plt Count 169 (150-400) K/uL MPV 12.20 H (7.40-12.00) fL Neut % (Auto) 52.3 (48.0-80.0) % Lymph % (Auto) 36.6 (16.0-40.0) % [place] % (Auto) 8.9 (0.0-15.0) % Eos % (Auto) 1.4 (0.0-7.0) % Baso % (Auto) 0.8 (0.0-1.5) % Neut # (Auto) 3.3 (1.4-5.7) K/uL Lymph # (Auto) 2.3 (0.6-2.4) K/uL [place] # (Auto) 0.6 (0.0-0.8) K/uL Eos # (Auto) 0.1 (0.0-0.7) K/uL Baso # (Auto) 0.1 (0.0-0.1) K/uL Add Manual Diff Neutrophils % (Manual) (48.0-80.0) % Band Neutrophils % % Lymphocytes % (Manual) (16.0-40.0) % Monocytes % (Manual) (0.0-15.0) % Eosinophils % (Manual) (0.0-7.0) % Nucleated RBC % 0.0 /100WBC Absolute Seg Neuts (1.4-5.7) Band Neutrophils # Lymphocytes # (Manual) (0.6-2.4) Monocytes # (Manual) (0.0-0.8) Eosinophils # (Manual) (0.0-0.7) Nucleated RBCs # 0 K/uL INR APTT (18.6-31.3) SEC Lactate 0.6 (0.20-2.00) mmol/L Sodium 139 (136-145) mmol/L Potassium 4.1 (3.5-5.1) mmol/L Chloride 105 (98-107) mmol/L Carbon Dioxide 23.9 (21.0-32.0) mmol/L BUN 16 (7.0-18.0) mg/dL Creatinine 1.3 H (0.6-1.0) mg/dL Est Cr Clr Drug Dosing 42.44 mL/min Estimated GFR (MDRD) 42.1 ml/min Glucose 97 (74-106) mg/dL Hemoglobin A1c (4.5 - 6.2) % Calcium 8.9 (8.5-10.1) mg/dL Phosphorus (2.6-4.7) mg/dL Magnesium 1.9 (1.8-2.4) mg/dL Total Bilirubin 0.5 (0.2-1.0) mg/dL AST 27 (15-37) IU/L ALT 38 (14-63) IU/L Alkaline Phosphatase 100 (46-116) U/L Troponin I < 0.050 (0.000-0.056) ng/mL Total Protein 6.8 (6.4-8.2) g/dL Albumin 3.6 (3.4-5.0) g/dL Globulin 3.2 (2.6-4.0) g/dL Albumin/Globulin Ratio 1.1 (0.9-1.6) Triglycerides (0-200) mg/dL Cholesterol (50-200) mg/dL LDL Cholesterol, Calc (60-180) mg/dL VLDL Cholesterol (5-55) mg/dL HDL Cholesterol (40-60) mg/dL Cholesterol/HDL Ratio (3.3-6.0) Lipase 30 L (73-393) U/L TSH 3rd Generation (0.36-3.74) uIU/mL SARS-CoV-2 RNA (BARB) (NEGATIVE) 08/04/20 08/04/20 08/04/20 Range/Units 13:58 13:58 17:01 WBC (4.0-11.0) K/uL RBC (4.30-5.90) M/uL Hgb (12.0-16.0) g/dL Hct (36.0-46.0) % MCV (80.0-98.0) fL MCH (27.0-32.0) pg MCHC (31.0-37.0) g/dL RDW Std Deviation (28.0-62.0) fl RDW Coeff of Trevor (11.0-15.0) % Plt Count (150-400) K/uL MPV (7.40-12.00) fL Neut % (Auto) (48.0-80.0) % Lymph % (Auto) (16.0-40.0) % [place] % (Auto) (0.0-15.0) % Eos % (Auto) (0.0-7.0) % Baso % (Auto) (0.0-1.5) % Neut # (Auto) (1.4-5.7) K/uL Lymph # (Auto) (0.6-2.4) K/uL [place] # (Auto) (0.0-0.8) K/uL Eos # (Auto) (0.0-0.7) K/uL Baso # (Auto) (0.0-0.1) K/uL Add Manual Diff Neutrophils % (Manual) (48.0-80.0) % Band Neutrophils % % Lymphocytes % (Manual) (16.0-40.0) % Monocytes % (Manual) (0.0-15.0) % Eosinophils % (Manual) (0.0-7.0) % Nucleated RBC % /100WBC Absolute Seg Neuts (1.4-5.7) Band Neutrophils # Lymphocytes # (Manual) (0.6-2.4) Monocytes # (Manual) (0.0-0.8) Eosinophils # (Manual) (0.0-0.7) Nucleated RBCs # K/uL INR 1.03 APTT 29.5 (18.6-31.3) SEC Lactate (0.20-2.00) mmol/L Sodium (136-145) mmol/L Potassium (3.5-5.1) mmol/L Chloride (98-107) mmol/L Carbon Dioxide (21.0-32.0) mmol/L BUN (7.0-18.0) mg/dL Creatinine (0.6-1.0) mg/dL Est Cr Clr Drug Dosing mL/min Estimated GFR (MDRD) ml/min Glucose (74-106) mg/dL Hemoglobin A1c (4.5 - 6.2) % Calcium (8.5-10.1) mg/dL Phosphorus 4.2 (2.6-4.7) mg/dL Magnesium (1.8-2.4) mg/dL Total Bilirubin (0.2-1.0) mg/dL AST (15-37) IU/L ALT (14-63) IU/L Alkaline Phosphatase (46-116) U/L Troponin I < 0.050 (0.000-0.056) ng/mL Total Protein (6.4-8.2) g/dL Albumin (3.4-5.0) g/dL Globulin (2.6-4.0) g/dL Albumin/Globulin Ratio (0.9-1.6) Triglycerides (0-200) mg/dL Cholesterol (50-200) mg/dL LDL Cholesterol, Calc (60-180) mg/dL VLDL Cholesterol (5-55) mg/dL HDL Cholesterol (40-60) mg/dL Cholesterol/HDL Ratio (3.3-6.0) Lipase (73-393) U/L TSH 3rd Generation (0.36-3.74) uIU/mL SARS-CoV-2 RNA (BARB) (NEGATIVE) 08/04/20 08/04/20 08/05/20 Range/Units 18:01 20:30 05:18 WBC 6.86 (4.0-11.0) K/uL RBC 4.69 (4.30-5.90) M/uL Hgb 13.7 (12.0-16.0) g/dL Hct 41.6 (36.0-46.0) % MCV 88.7 (80.0-98.0) fL MCH 29.2 (27.0-32.0) pg MCHC 32.9 (31.0-37.0) g/dL RDW Std Deviation 44.0 (28.0-62.0) fl RDW Coeff of Trevor 14 (11.0-15.0) % Plt Count 163 (150-400) K/uL MPV 12.70 H (7.40-12.00) fL Neut % (Auto) (48.0-80.0) % Lymph % (Auto) (16.0-40.0) % [place] % (Auto) (0.0-15.0) % Eos % (Auto) (0.0-7.0) % Baso % (Auto) (0.0-1.5) % Neut # (Auto) (1.4-5.7) K/uL Lymph # (Auto) (0.6-2.4) K/uL [place] # (Auto) (0.0-0.8) K/uL Eos # (Auto) (0.0-0.7) K/uL Baso # (Auto) (0.0-0.1) K/uL Add Manual Diff YES Neutrophils % (Manual) 43 L (48.0-80.0) % Band Neutrophils % 6 % Lymphocytes % (Manual) 42 H (16.0-40.0) % Monocytes % (Manual) 8 (0.0-15.0) % Eosinophils % (Manual) 1 (0.0-7.0) % Nucleated RBC % 0.3 /100WBC Absolute Seg Neuts 2.9 (1.4-5.7) Band Neutrophils # 0.4 Lymphocytes # (Manual) 2.9 H (0.6-2.4) Monocytes # (Manual) 0.5 (0.0-0.8) Eosinophils # (Manual) 0.1 (0.0-0.7) Nucleated RBCs # 0 K/uL INR APTT (18.6-31.3) SEC Lactate (0.20-2.00) mmol/L Sodium (136-145) mmol/L Potassium (3.5-5.1) mmol/L Chloride (98-107) mmol/L Carbon Dioxide (21.0-32.0) mmol/L BUN (7.0-18.0) mg/dL Creatinine (0.6-1.0) mg/dL Est Cr Clr Drug Dosing mL/min Estimated GFR (MDRD) ml/min Glucose (74-106) mg/dL Hemoglobin A1c (4.5 - 6.2) % Calcium (8.5-10.1) mg/dL Phosphorus (2.6-4.7) mg/dL Magnesium (1.8-2.4) mg/dL Total Bilirubin (0.2-1.0) mg/dL AST (15-37) IU/L ALT (14-63) IU/L Alkaline Phosphatase (46-116) U/L Troponin I < 0.050 (0.000-0.056) ng/mL Total Protein (6.4-8.2) g/dL Albumin (3.4-5.0) g/dL Globulin (2.6-4.0) g/dL Albumin/Globulin Ratio (0.9-1.6) Triglycerides (0-200) mg/dL Cholesterol (50-200) mg/dL LDL Cholesterol, Calc (60-180) mg/dL VLDL Cholesterol (5-55) mg/dL HDL Cholesterol (40-60) mg/dL Cholesterol/HDL Ratio (3.3-6.0) Lipase (73-393) U/L TSH 3rd Generation (0.36-3.74) uIU/mL SARS-CoV-2 RNA (BARB) NEGATIVE (NEGATIVE) 08/05/20 08/05/20 Range/Units 05:18 05:18 WBC (4.0-11.0) K/uL RBC (4.30-5.90) M/uL Hgb (12.0-16.0) g/dL Hct (36.0-46.0) % MCV (80.0-98.0) fL MCH (27.0-32.0) pg MCHC (31.0-37.0) g/dL RDW Std Deviation (28.0-62.0) fl RDW Coeff of Trevor (11.0-15.0) % Plt Count (150-400) K/uL MPV (7.40-12.00) fL Neut % (Auto) (48.0-80.0) % Lymph % (Auto) (16.0-40.0) % [place] % (Auto) (0.0-15.0) % Eos % (Auto) (0.0-7.0) % Baso % (Auto) (0.0-1.5) % Neut # (Auto) (1.4-5.7) K/uL Lymph # (Auto) (0.6-2.4) K/uL [place] # (Auto) (0.0-0.8) K/uL Eos # (Auto) (0.0-0.7) K/uL Baso # (Auto) (0.0-0.1) K/uL Add Manual Diff Neutrophils % (Manual) (48.0-80.0) % Band Neutrophils % % Lymphocytes % (Manual) (16.0-40.0) % Monocytes % (Manual) (0.0-15.0) % Eosinophils % (Manual) (0.0-7.0) % Nucleated RBC % /100WBC Absolute Seg Neuts (1.4-5.7) Band Neutrophils # Lymphocytes # (Manual) (0.6-2.4) Monocytes # (Manual) (0.0-0.8) Eosinophils # (Manual) (0.0-0.7) Nucleated RBCs # K/uL INR APTT (18.6-31.3) SEC Lactate (0.20-2.00) mmol/L Sodium 140 (136-145) mmol/L Potassium 3.8 (3.5-5.1) mmol/L Chloride 107 (98-107) mmol/L Carbon Dioxide 25.5 (21.0-32.0) mmol/L BUN 18 (7.0-18.0) mg/dL Creatinine 1.3 H (0.6-1.0) mg/dL Est Cr Clr Drug Dosing 42.44 mL/min Estimated GFR (MDRD) 42.1 ml/min Glucose 90 (74-106) mg/dL Hemoglobin A1c 5.9 (4.5 - 6.2) % Calcium 8.9 (8.5-10.1) mg/dL Phosphorus (2.6-4.7) mg/dL Magnesium (1.8-2.4) mg/dL Total Bilirubin 0.5 (0.2-1.0) mg/dL AST 26 (15-37) IU/L ALT 32 (14-63) IU/L Alkaline Phosphatase 91 (46-116) U/L Troponin I (0.000-0.056) ng/mL Total Protein 6.1 L (6.4-8.2) g/dL Albumin 3.2 L (3.4-5.0) g/dL Globulin 2.9 (2.6-4.0) g/dL Albumin/Globulin Ratio 1.1 (0.9-1.6) Triglycerides 92 (0-200) mg/dL Cholesterol 155 (50-200) mg/dL LDL Cholesterol, Calc 97 (60-180) mg/dL VLDL Cholesterol 18 (5-55) mg/dL HDL Cholesterol 40 (40-60) mg/dL Cholesterol/HDL Ratio 3.9 (3.3-6.0) Lipase (73-393) U/L TSH 3rd Generation 3.21 (0.36-3.74) uIU/mL SARS-CoV-2 RNA (BARB) (NEGATIVE) Med Orders - Current: Current Medications Acetaminophen (Tylenol) 650 mg PO Q4H PRN PRN Reason: Pain (Mild 1-3)/fever Albuterol/Ipratropium (Duoneb 3.0-0.5 Mg/3 Ml) 3 ml NEB Q6HRRT PRN PRN Reason: Dyspnea Cyclobenzaprine HCl (Flexeril) 10 mg PO TID PRN PRN Reason: Muscle Spasm Last Admin: 08/04/20 22:58 Dose: 10 mg Documented by: Rivaroxaban (Xarelto) 20 mg PO DAILY [facility] Last Admin: 08/05/20 09:26 Dose: 20 mg Documented by: Sodium Chloride (Saline Flush) 10 ml FLUSH ASDIRECTED PRN PRN Reason: Keep Vein Open Last Admin: 08/04/20 16:47 Dose: 10 ml Documented by: Sodium Chloride (Saline Flush) 2.5 ml FLUSH ASDIRECTED PRN PRN Reason: Keep Vein Open Last Admin: 08/04/20 16:47 Dose: 2.5 ml Documented by: Trazodone HCl (Trazodone) 50 mg PO DAILY PRN PRN Reason: Insomnia Last Admin: 08/04/20 22:55 Dose: 50 mg Documented by: Discontinued Medications Cyclobenzaprine HCl (Flexeril) 10 mg PO TID [facility] Last Admin: 08/05/20 04:00 Dose: Not Given Documented by: Lactated Ringer's (Ringers, Lactated) 500 mls @ 999 mls/hr IV .BOLUS ONE Stop: 08/04/20 19:13 Last Admin: 08/04/20 22:49 Dose: 999 mls/hr Documented by: Influenza Virus Vaccine (Pharmacy To Dose - Influenza Vaccine) 1 each IM ONETIME ONE Stop: 08/05/20 09:01 Influenza Virus Vaccine (Afluria Quad 2020-21 (3yr Up)) 60 mcg IM .ONCE ONE Stop: 08/04/20 21:31 <Jeremías Daniel - Last Filed: 08/08/20 19:11> Discharge Summary - Referral to Home Health Primary Care Physician: Shawanda Florez NP - Patient Data Vitals - Most Recent: Last Vital Signs Temp 36.6 C 08/05/20 12:00 Pulse 80 08/05/20 12:00 Resp 18 08/05/20 12:00 BP 128/76 08/05/20 12:00 Pulse Ox 93 L 08/05/20 12:00 Med Orders - Current: Current Medications Discontinued Medications Acetaminophen (Tylenol) 650 mg PO Q4H PRN PRN Reason: Pain (Mild 1-3)/fever Albuterol/Ipratropium (Duoneb 3.0-0.5 Mg/3 Ml) 3 ml NEB Q6HRRT PRN PRN Reason: Dyspnea Cyclobenzaprine HCl (Flexeril) 10 mg PO TID [facility] Last Admin: 08/05/20 04:00 Dose: Not Given Documented by: Cyclobenzaprine HCl (Flexeril) 10 mg PO TID PRN PRN Reason: Muscle Spasm Last Admin: 08/04/20 22:58 Dose: 10 mg Documented by: Lactated Ringer's (Ringers, Lactated) 500 mls @ 999 mls/hr IV .BOLUS ONE Stop: 08/04/20 19:13 Last Admin: 08/04/20 22:49 Dose: 999 mls/hr Documented by: Influenza Virus Vaccine (Pharmacy To Dose - Influenza Vaccine) 1 each IM ONETIME ONE Stop: 08/05/20 09:01 Influenza Virus Vaccine (Fluzone Quad [id number] Syringe) 60 mcg IM .ONCE ONE Stop: 08/05/20 13:01 Last Admin: 08/05/20 13:16 Dose: 60 mcg Documented by: Rivaroxaban (Xarelto) 20 mg PO DAILY [facility] Last Admin: 08/05/20 09:26 Dose: 20 mg Documented by: Sodium Chloride (Saline Flush) 10 ml FLUSH ASDIRECTED PRN PRN Reason: Keep Vein Open Last Admin: 08/04/20 16:47 Dose: 10 ml Documented by: Sodium Chloride (Saline Flush) 2.5 ml FLUSH ASDIRECTED PRN PRN Reason: Keep Vein Open Last Admin: 08/04/20 16:47 Dose: 2.5 ml Documented by: Trazodone HCl (Trazodone) 50 mg PO DAILY PRN PRN Reason: Insomnia Last Admin: 08/04/20 22:55 Dose: 50 mg Documented by: - Free Text/Narrative Note: I have seen and evaluated the patient. I have discussed findings and treatment plan with resident. I agree with the assessment and plan in the following note.
[2020-08-05] MEDS ORDERED: FLU VACC QS2020-21(6MOS UP)/PF 60 MCG/0.5 ML SYRINGE IM ONE (13:00)
--- NOTE | 2020-08-09 09:55 | ECHO ---
EXAM DATE: 08/04/20 PATIENT'S AGE: 60 The ECHO report has been scanned into [employer] and can be seen in this patient's EMR (Electronic Medical Record) under the REPORTS section. The report has also been scanned into PACS. DIEGO
== END 2020-08-05 13:10 | disposition home or self-care (01) ==
LOC: MW.ED 13:50 → MW.MS 17:55
PROVIDERS: ADMIT Student in an Organized Health Care Education/Training Program; ATTEND Student in an Organized Health Care Education/Training Program
DX: R07.9 Chest pain, unspecified (principal); J44.9 Chronic obstructive pulmonary disease, unspecified; D68.51 Activated protein C resistance; N17.9 Acute kidney failure, unspecified; G43.909 Migraine, unspecified, not intractable, without status migrainosus; Z91.048 Other nonmedicinal substance allergy status; Z79.899 Other long term (current) drug therapy; Z98.890 Other specified postprocedural states; Z20.828 Contact with and (suspected) exposure to other viral communicable diseases
CPT/HCPCS: 36415; 71045; 80053; 80061; 83036; 83605; 83690; 83735; 84100; 84443; 84484; 85025; 85610; 85730; 90686; 93005; 93306; 99285; A9270; G0008; G0378; J7120; U0002; 93010; 99217; 99219